=== PATIENT | male | born 1955 | race Asian ===

== ENCOUNTER 2025-03-21 17:37 | Inpatient (IN) | payer MEDICARE, OTHER ==
[~2025-03-21] VITALS: Ht 170.2 cm; Wt 66.2 kg
[2025-03-22 13:19] VITALS: BP 174/60; TEMP 97.5
[2025-03-22 14:12] VITALS: BP 174/60; TEMP 97.5
[2025-03-22 22:45] VITALS: BP 119/60; TEMP 98.2; O2SAT 98
[2025-03-22] MEDS ORDERED: MIRT7.5T10 PO (23:01)
[2025-03-22] MEDS ORDERED: LACT1CAP72 PO (23:01)
[2025-03-22] MEDS ORDERED: ATOR20TA PO (23:20)
[2025-03-22] MEDS ORDERED: TAMS-3 PO (23:20)
[2025-03-22] MEDS ORDERED: OLAN5TAB70 PO (23:20)
[2025-03-22] MEDS ORDERED: ONDA-104 PO (23:20)
[2025-03-22] MEDS ORDERED: ACET325T53 PO (23:20)
[2025-03-22] MEDS ORDERED: VITA1TAB37 PO (23:20)
[2025-03-22] MEDS ORDERED: CEFE1PIG3 IV (23:20)
[2025-03-22] MEDS ORDERED: COLL30OI TP (23:20)
[2025-03-22] MEDS ORDERED: SODI1TAB3 PO (23:20)
[2025-03-22] MEDS ORDERED: PROC5TAB56 PO (23:20)
[2025-03-22] MEDS ORDERED: ZINC1CAP2 PO (23:20)
[2025-03-23 05:00] VITALS: BP 101/62; TEMP 97.8; O2SAT 97
[2025-03-23] MEDS: VITAMIN B COMPLEX 1 TABLET PO SCH (06:30)
[2025-03-23 08:00] VITALS: BP 104/63; TEMP 97.4; O2SAT 97
[2025-03-23] MEDS: ACIDOPHILUS/BULGARICUS CHEW TAB PO SCH (08:56)
[2025-03-23] MEDS ORDERED: COLLAGENASE OINT 30 GM TUBE TP SCH (09:00)
[2025-03-23] MEDS ORDERED: VITAMIN B COMP W C PO SCH (09:00)
[2025-03-23] MEDS: ZINC SULFATE 220 MG CAPSULE PO SCH (09:08)
[2025-03-23] MEDS ORDERED: MEDIHONEY= THERAHONEY 1.5 OZ TUBE TOP SCH (10:30)
[2025-03-23] MEDS: CEFEPIME HCL 1 G in IV DEXTROSE 5% 50 ML IV SCH (10:50)
[2025-03-23 15:57] VITALS: BP 99/62; TEMP 98.5; O2SAT 98
[2025-03-23] MEDS: MEDIHONEY= THERAHONEY 1.5 OZ TUBE TOP SCH (17:40)
[2025-03-23] MEDS: OLANZAPINE 5 MG TABLET PO SCH (20:44)
[2025-03-23] MEDS: ATORVASTATIN 20 MG TABLET PO SCH (20:45)
[2025-03-23] MEDS: TAMSULOSIN HCL 0.4 MG CAP.SR.24H PO SCH (20:45)
[2025-03-23] MEDS: MIRTAZAPINE 15 MG TABLET PO SCH (20:45)
[2025-03-23] MEDS ORDERED: Medication Not On Formulary EA (Mirtazapine 7.5 MG) PO SCH (21:00)
[2025-03-23 21:17] VITALS: BP 116/69; TEMP 98.7; O2SAT 99
[2025-03-24 07:24] LABS: BASOPHILS # (AUTO) 0.1 K/UL (0.0-0.2); BASOPHILS % (AUTO) 0.7 % (0.0-2.0); EOSINOPHILS # (AUTO) 0.1 K/uL (0.0-0.7); EOSINOPHILS % (AUTO) 1.5 % (0.0-7.0); HEMATOCRIT 24.2 % (36.7-47.1); HEMOGLOBIN 8.1 g/dL (12.5-16.3); LYMPHOCYTES # (AUTO) 1.6 K/uL (0.8-4.8); LYMPHOCYTES % (AUTO) 19.4 % (20.5-51.5); MEAN CORPUSCULAR HEMOGLOBIN 30.8 uug (23.8-33.4); MEAN CORPUSCULAR HGB CONC 33 g/dL (32.5-36.3); MEAN CORPUSCULAR VOLUME 92.3 fL (73.0-96.2); MONOCYTES # (AUTO) 0.8 K/uL (0.1-1.30); MONOCYTES % (AUTO) 9.8 % (0.0-11.0); NEUTROPHILS # (AUTO) 5.5 K/uL (1.8-8.9); NEUTROPHILS % (AUTO) 68.6 % (38.5-71.5); PLATELET COUNT (AUTO) 364 K/uL (152-348); RED BLOOD CELL COUNT(AUTO) 2.62 MIL/uL (4.06-5.63); RED CELL DISTRIBUTION WIDTH 17.2 % (12.1-16.2)
[2025-03-24 07:28] LABS: DIFFERENTIAL COMMENT 1
[2025-03-24 07:38] VITALS: BP 112/65; TEMP 97.7; O2SAT 98
[2025-03-24 07:49] VITALS: BP 100/58; TEMP 97.2; O2SAT 98
[2025-03-24 07:49] LABS: CALCIUM 9.6 mg/dL (8.5-10.1); CREATININE 1.4 mg/dL (0.6-1.3); MAGNESIUM 2.2 mg/dL (1.8-2.4); PHOSPHOROUS 4.8 mg/dL (2.5-4.9)
[2025-03-24] MEDS: ZINC SULFATE 220 MG CAPSULE PO SCH (09:46)
[2025-03-24] MEDS: IV NORMAL SALINE 500 ML BAG IV ONE (10:55)
[2025-03-24 16:00] VITALS: BP 113/63; TEMP 97.6; O2SAT 98
[2025-03-24] MEDS: ARGININE/GLUTAMINE/CALCIUM BMB 1 EACH POWD.PACK PO SCH (17:00)
[2025-03-24] MEDS ORDERED: CEFEPIME HCL 1 G in IV DEXTROSE 5% 50 ML IV SCH (18:00)
[2025-03-24 20:16] VITALS: BP 111/63; TEMP 97.2; O2SAT 98
[2025-03-24] MEDS: REMEDY ESSENTIAL ZINC PASTE 113 GM TOP PRN (21:50)
[2025-03-25 05:30] VITALS: BP 108/65; TEMP 97.6; O2SAT 99
[2025-03-25 08:00] VITALS: BP 104/65; TEMP 97.7; O2SAT 99
[2025-03-25 08:08] LABS: CALCIUM 9.7 mg/dL (8.5-10.1); CREATININE 1.4 mg/dL (0.6-1.3); POTASSIUM 4.8 mmol/L (3.5-5.1)
[2025-03-25 16:20] VITALS: BP 123/69; TEMP 97.7; O2SAT 100
[2025-03-25 20:00] VITALS: BP 114/65; TEMP 97.7; O2SAT 99
[2025-03-26 05:00] VITALS: BP 100/58; TEMP 97.9; O2SAT 98
[2025-03-26 08:07] VITALS: BP 103/60; TEMP 97.4; O2SAT 98
[2025-03-26 16:01] VITALS: BP 145/70; TEMP 97; O2SAT 95
[2025-03-26 19:35] VITALS: BP 116/48; TEMP 97.8; O2SAT 98
[2025-03-27 05:30] VITALS: BP 114/69; TEMP 97.9; O2SAT 100
[2025-03-27 07:51] VITALS: BP 105/60; TEMP 97.7; O2SAT 98
[2025-03-27 15:56] VITALS: BP 114/66; TEMP 97.6; O2SAT 98
[2025-03-27 20:20] VITALS: BP 109/56; TEMP 98.4; O2SAT 98
[2025-03-28 06:42] VITALS: BP 110/63; TEMP 97.7; O2SAT 99
[2025-03-28 08:00] VITALS: BP 98/57; TEMP 97.3; O2SAT 99
[2025-03-28] MEDS: MEGESTROL ACETATE 400 MG/10 ML LIQUID UDC PO SCH (13:47)
[2025-03-28 17:03] VITALS: BP 104/60; TEMP 98.1; O2SAT 100
[2025-03-28 19:51] VITALS: BP 104/60; TEMP 97.8; O2SAT 98
[2025-03-29 05:43] VITALS: BP 114/60; TEMP 97.6; O2SAT 99
[2025-03-29 09:17] VITALS: BP 113/63; TEMP 97.6; O2SAT 100
[2025-03-29] MEDS ORDERED: LOPERAMIDE HCL 2 MG CAPSULE PO ONE (10:00)
[2025-03-29] MEDS: LOPERAMIDE HCL 2 MG CAPSULE PO PRN (10:26)
[2025-03-29 10:27] LABS: BASOPHILS % (AUTO) 0.2 % (0.0-2.0); EOSINOPHILS # (AUTO) 0.1 K/uL (0.0-0.7); EOSINOPHILS % (AUTO) 0.6 % (0.0-7.0); HEMATOCRIT 28.6 % (36.7-47.1); HEMOGLOBIN 9.3 g/dL (12.5-16.3); LYMPHOCYTES # (AUTO) 1.6 K/uL (0.8-4.8); LYMPHOCYTES % (AUTO) 13.5 % (20.5-51.5); MEAN CORPUSCULAR HEMOGLOBIN 30.6 uug (23.8-33.4); MEAN CORPUSCULAR HGB CONC 32 g/dL (32.5-36.3); MEAN CORPUSCULAR VOLUME 94.2 fL (73.0-96.2); MONOCYTES # (AUTO) 0.6 K/uL (0.1-1.30); MONOCYTES % (AUTO) 5.2 % (0.0-11.0); NEUTROPHILS # (AUTO) 9.8 K/uL (1.8-8.9); NEUTROPHILS % (AUTO) 80.5 % (38.5-71.5); PLATELET COUNT (AUTO) 456 K/uL (152-348); RED BLOOD CELL COUNT(AUTO) 3.03 MIL/uL (4.06-5.63); RED CELL DISTRIBUTION WIDTH 16.9 % (12.1-16.2); WHITE BLOOD COUNT (AUTO) 12.2 K/uL (3.6-10.2)
[2025-03-29 10:48] LABS: CALCIUM 10.4 mg/dL (8.5-10.1); CREATININE 1.5 mg/dL (0.6-1.3); POTASSIUM 4.7 mmol/L (3.5-5.1)
[2025-03-29 11:52] LABS: DIFFERENTIAL COMMENT 1
[2025-03-29 16:29] VITALS: BP 116/64; TEMP 97.9; O2SAT 100
[2025-03-29 20:30] VITALS: BP 101/54; TEMP 98; O2SAT 100
[2025-03-30 05:53] VITALS: BP 110/63; TEMP 98.6; O2SAT 100
[2025-03-30 07:58] LABS: BASOPHILS % (AUTO) 0.2 % (0.0-2.0); EOSINOPHILS # (AUTO) 0.1 K/uL (0.0-0.7); EOSINOPHILS % (AUTO) 0.4 % (0.0-7.0); HEMATOCRIT 23.2 % (36.7-47.1); HEMOGLOBIN 7.8 g/dL (12.5-16.3); LYMPHOCYTES # (AUTO) 1.7 K/uL (0.8-4.8); LYMPHOCYTES % (AUTO) 11.8 % (20.5-51.5); MEAN CORPUSCULAR HEMOGLOBIN 30.7 uug (23.8-33.4); MEAN CORPUSCULAR HGB CONC 34 g/dL (32.5-36.3); MEAN CORPUSCULAR VOLUME 91.7 fL (73.0-96.2); MONOCYTES % (AUTO) 7.4 % (0.0-11.0); NEUTROPHILS # (AUTO) 11.3 K/uL (1.8-8.9); NEUTROPHILS % (AUTO) 80.2 % (38.5-71.5); PLATELET COUNT (AUTO) 394 K/uL (152-348); RED BLOOD CELL COUNT(AUTO) 2.53 MIL/uL (4.06-5.63); WHITE BLOOD COUNT (AUTO) 14.1 K/uL (3.6-10.2)
[2025-03-30 07:59] LABS: DIFFERENTIAL COMMENT 1
[2025-03-30 08:00] VITALS: BP 99/55; TEMP 97.7; O2SAT 100
[2025-03-30 16:03] VITALS: BP 104/53; TEMP 98.6; O2SAT 100
[2025-03-30 19:49] VITALS: BP 110/59; TEMP 98.8; O2SAT 100
[2025-03-30 22:38] LABS: *BILIRUBIN,URIN NEGATIVE (NEGATIVE); *BLOOD, URINE 2+ (NEGATIVE); *CLARITY,URINE CLOUDY (CLEAR); *COLOR,URINE YELLOW (YELLOW); *KETONES,URINE NEGATIVE (NEGATIVE); *PROTEIN,URINE 2+ (NEGATIVE); *UROBILINOGEN,URINE 0.2 E.U./dl (NORMAL); LEUKOCYTE ESTERASE ,URINE 3+ (NEGATIVE); NITRITE, URINE NEGATIVE (NEGATIVE); UGLUCOSE NEGATIVE (NEGATIVE)
[2025-03-30 22:51] LABS: WBC,URINE 50-80 /HPF (0-3)
[2025-03-30 22:52] LABS: BACTERIA,URINE MODERATE /HPF (NONE SEEN); SQUAMOUS EPITHELIAL CELL,UR FEW /HPF (NONE SEEN)
[2025-03-30 22:55] LABS: YEAST,URINE BUDDING YEAST /HPF (NONE SEEN)
[2025-03-31 06:03] LABS: EOSINOPHILS % (AUTO) 0.4 % (0.0-7.0); HEMATOCRIT 21.5 % (36.7-47.1)
[2025-03-31 06:05] LABS: BASOPHILS % (AUTO) 0.3 % (0.0-2.0); LYMPHOCYTES # (AUTO) 1.7 K/uL (0.8-4.8); LYMPHOCYTES % (AUTO) 14.3 % (20.5-51.5); MEAN CORPUSCULAR HEMOGLOBIN 30.7 uug (23.8-33.4); MEAN CORPUSCULAR HGB CONC 34 g/dL (32.5-36.3); MEAN CORPUSCULAR VOLUME 89.6 fL (73.0-96.2); MONOCYTES # (AUTO) 0.9 K/uL (0.1-1.30); MONOCYTES % (AUTO) 7.5 % (0.0-11.0); NEUTROPHILS # (AUTO) 9.4 K/uL (1.8-8.9); NEUTROPHILS % (AUTO) 77.5 % (38.5-71.5); PLATELET COUNT (AUTO) 433 K/uL (152-348); RED CELL DISTRIBUTION WIDTH 16.4 % (12.1-16.2); WHITE BLOOD COUNT (AUTO) 12.1 K/uL (3.6-10.2)
[2025-03-31 06:06] LABS: DIFFERENTIAL COMMENT 1; HEMOGLOBIN 7.3 g/dL (12.5-16.3)
[2025-03-31 06:09] LABS: ALBUMIN 1.6 g/dL (3.4-5.0); BILIRUBIN,TOTAL 0.2 mg/dL (0.2-1.0); CALCIUM 9.5 mg/dL (8.5-10.1); CREATININE 1.4 mg/dL (0.6-1.3); PHOSPHOROUS 4.9 mg/dL (2.5-4.9); POTASSIUM 5.2 mmol/L (3.5-5.1); TOTAL PROTEIN, SERUM 9.3 g/dL (6.4-8.2)
[2025-03-31 07:17] VITALS: BP 100/54; TEMP 97.8; O2SAT 99
[2025-03-31 08:00] VITALS: BP 98/58; TEMP 97.7; O2SAT 98
[2025-03-31 16:05] VITALS: BP 116/66; TEMP 97.6; O2SAT 100
[2025-03-31 19:37] VITALS: BP 105/65; TEMP 98.1; O2SAT 99
[2025-03-31 21:47] LABS: *OCCULT BLOOD STOOL POSITIVE (NEGATIVE)
[2025-03-31] MEDS: CEphaleXIN 500 MG CAPSULE PO SCH (21:52)
[2025-04-01] MEDS: PANTOPRAZOLE SODIUM 40 MG TABLET.DR PO SCH (06:03)
[2025-04-01 06:52] VITALS: BP 136/73; TEMP 98.2; O2SAT 95
[2025-04-01 07:13] LABS: BASOPHILS % (AUTO) 0.2 % (0.0-2.0); EOSINOPHILS % (AUTO) 0.2 % (0.0-7.0); HEMATOCRIT 23.6 % (36.7-47.1); HEMOGLOBIN 7.9 g/dL (12.5-16.3); LYMPHOCYTES # (AUTO) 1.8 K/uL (0.8-4.8); LYMPHOCYTES % (AUTO) 13.8 % (20.5-51.5); MEAN CORPUSCULAR HGB CONC 34 g/dL (32.5-36.3); MEAN CORPUSCULAR VOLUME 92.5 fL (73.0-96.2); MONOCYTES # (AUTO) 0.9 K/uL (0.1-1.30); MONOCYTES % (AUTO) 6.8 % (0.0-11.0); NEUTROPHILS # (AUTO) 10.1 K/uL (1.8-8.9); PLATELET COUNT (AUTO) 437 K/uL (152-348); RED BLOOD CELL COUNT(AUTO) 2.55 MIL/uL (4.06-5.63); WHITE BLOOD COUNT (AUTO) 12.7 K/uL (3.6-10.2)
[2025-04-01 07:14] LABS: DIFFERENTIAL COMMENT 1
[2025-04-01 07:38] LABS: ALBUMIN 1.7 g/dL (3.4-5.0); BILIRUBIN,TOTAL 0.2 mg/dL (0.2-1.0); CALCIUM 9.5 mg/dL (8.5-10.1); CREATININE 1.1 mg/dL (0.6-1.3); MAGNESIUM 2.2 mg/dL (1.8-2.4); PHOSPHOROUS 5.1 mg/dL (2.5-4.9); TOTAL PROTEIN, SERUM 9.4 g/dL (6.4-8.2)
[2025-04-01 07:48] VITALS: BP 132/60; TEMP 98.8; O2SAT 99
[2025-04-01] MEDS: FLUCONAZOLE 100 MG TABLET PO SCH (08:40)
[2025-04-01 16:07] VITALS: BP 110/57; TEMP 97.6; O2SAT 100
[2025-04-02 06:16] VITALS: BP 111/62; TEMP 98.4; O2SAT 100
[2025-04-02 08:00] VITALS: BP 111/62; TEMP 97.2; O2SAT 100
[2025-04-02] MEDS: levoFLOXacin 500 MG TABLET PO SCH (11:09)
[2025-04-02 16:00] VITALS: BP 136/22; TEMP 97.6; O2SAT 97
[2025-04-02 19:48] VITALS: BP 115/63; TEMP 97.4; O2SAT 99
[2025-04-03 05:16] VITALS: BP 106/68; TEMP 97.5; O2SAT 99
[2025-04-03] MEDS: ONDANSETRON HCL 4 MG TABLET PO PRN (08:16)
[2025-04-03] MEDS: ACETAMINOPHEN 325 MG TABLET PO PRN (09:57)
[2025-04-03] MEDS: DICYCLOMINE HCL 20 MG/2 ML AMPUL IM ONE (11:45)
[2025-04-03 20:00] VITALS: BP 112/67; TEMP 98.3; O2SAT 97
[2025-04-04 05:00] VITALS: BP 117/17; TEMP 97.3; O2SAT 99
[2025-04-04 08:00] VITALS: BP 120/77; TEMP 97.7; O2SAT 100
[2025-04-04 08:06] LABS: BASOPHILS % (AUTO) 0.2 % (0.0-2.0); EOSINOPHILS % (AUTO) 0.1 % (0.0-7.0); HEMATOCRIT 26.9 % (36.7-47.1); LYMPHOCYTES # (AUTO) 1.7 K/uL (0.8-4.8); LYMPHOCYTES % (AUTO) 11.1 % (20.5-51.5); MEAN CORPUSCULAR HEMOGLOBIN 31.2 uug (23.8-33.4); MEAN CORPUSCULAR HGB CONC 34 g/dL (32.5-36.3); MONOCYTES # (AUTO) 0.8 K/uL (0.1-1.30); MONOCYTES % (AUTO) 5.5 % (0.0-11.0); NEUTROPHILS # (AUTO) 12.5 K/uL (1.8-8.9); NEUTROPHILS % (AUTO) 83.1 % (38.5-71.5); PLATELET COUNT (AUTO) 606 K/uL (152-348); RED CELL DISTRIBUTION WIDTH 16.4 % (12.1-16.2); WHITE BLOOD COUNT (AUTO) 15.1 K/uL (3.6-10.2)
[2025-04-04 08:09] LABS: DIFFERENTIAL COMMENT 1
[2025-04-04 08:26] LABS: ALBUMIN 1.8 g/dL (3.4-5.0); BILIRUBIN,TOTAL 0.3 mg/dL (0.2-1.0); CALCIUM 10.1 mg/dL (8.5-10.1); CREATININE 1.9 mg/dL (0.6-1.3); MAGNESIUM 2.5 mg/dL (1.8-2.4); PHOSPHOROUS 6.8 mg/dL (2.5-4.9); POTASSIUM 5.6 mmol/L (3.5-5.1); TOTAL PROTEIN, SERUM 10.5 g/dL (6.4-8.2)
[2025-04-04] MEDS: DICYCLOMINE HCL 20 MG/2 ML AMPUL IM PRN (12:18)
[2025-04-04] MEDS: IV NS 1000 ML 1,000 ML IV ONE (12:40)
[2025-04-04 15:20] LABS: *BILIRUBIN,URIN NEGATIVE (NEGATIVE); *BLOOD, URINE 3+ (NEGATIVE); *CLARITY,URINE SLIGHTLY CLOUDY (CLEAR); *COLOR,URINE YELLOW (YELLOW); *KETONES,URINE NEGATIVE (NEGATIVE); *PROTEIN,URINE 2+ (NEGATIVE); *UROBILINOGEN,URINE 0.2 E.U./dl (NORMAL); LEUKOCYTE ESTERASE ,URINE 3+ (NEGATIVE); NITRITE, URINE NEGATIVE (NEGATIVE); UGLUCOSE NEGATIVE (NEGATIVE)
[2025-04-04 15:30] LABS: *CREATININE,URINE 82.9 mg/dL (30-125); *URINE TOTAL PROTEIN RANDOM 170.5 mg/dL (<150/24HR)
[2025-04-04 15:41] LABS: BACTERIA,URINE MODERATE /HPF (NONE SEEN); WBC,URINE 20-50 /HPF (0-3)
[2025-04-04 15:42] LABS: SQUAMOUS EPITHELIAL CELL,UR FEW /HPF (NONE SEEN)
[2025-04-04 16:00] VITALS: BP 122/77; TEMP 97.5; O2SAT 100
[2025-04-04] MEDS: IV NS 1000 ML 1,000 ML IV SCH (18:27)
[2025-04-04 18:44] LABS: CALCIUM 9.4 mg/dL (8.5-10.1); CREATININE 1.7 mg/dL (0.6-1.3); POTASSIUM 5.7 mmol/L (3.5-5.1)
[2025-04-04] MEDS ORDERED: FUROSEMIDE 40 MG/4 ML VIAL IV ONE (19:15)
[2025-04-04] MEDS ORDERED: IV NORMAL SALINE 1000 ML BAG IV ONE (19:15)
[2025-04-05] MEDS ORDERED: DICY10AM2 IM (09:31)
[2025-04-05] MEDS ORDERED: HONE44PA TP (09:32)
[2025-04-05] MEDS ORDERED: PANT40TA49 PO (09:33)
[2025-04-05] MEDS ORDERED: PETR113P TP (09:34)
[2025-04-05] MEDS ORDERED: LOPE2TAB25 PO (09:39)
[2025-04-06 07:23] LABS: BASOPHILS % (AUTO) 0.1 % (0.0-2.0); HEMATOCRIT 25.1 % (36.7-47.1); HEMOGLOBIN 8.3 g/dL (12.5-16.3); LYMPHOCYTES # (AUTO) 1.1 K/uL (0.8-4.8); MEAN CORPUSCULAR HEMOGLOBIN 30.3 uug (23.8-33.4); MEAN CORPUSCULAR HGB CONC 33 g/dL (32.5-36.3); MEAN CORPUSCULAR VOLUME 91.5 fL (73.0-96.2); MONOCYTES # (AUTO) 0.7 K/uL (0.1-1.30); MONOCYTES % (AUTO) 4.9 % (0.0-11.0); NEUTROPHILS # (AUTO) 11.5 K/uL (1.8-8.9); PLATELET COUNT (AUTO) 560 K/uL (152-348); RED BLOOD CELL COUNT(AUTO) 2.74 MIL/uL (4.06-5.63); RED CELL DISTRIBUTION WIDTH 16.6 % (12.1-16.2); WHITE BLOOD COUNT (AUTO) 13.2 K/uL (3.6-10.2)
[2025-04-06 07:37] LABS: DIFFERENTIAL COMMENT 1
[2025-04-07 16:50] LABS: PROSTATE SPECIFIC ANTIGEN 1.92 ng/mL (0.00-4.00)
== END 2025-04-04 20:41 | disposition short-term general hospital (02) | DRG 853 ==
LOC: EDBD
PROVIDERS: ADMIT Physical Medicine & Rehabilitation Pain Medicine; ATTEND Physical Medicine & Rehabilitation Pain Medicine
PROC: 0JB70ZZ Excision of Back Subcutaneous Tissue and Fascia, Open Approach (ICD-10-PCS; principal; 2025-03-24)
PROC: 0JB70ZZ Excision of Back Subcutaneous Tissue and Fascia, Open Approach (ICD-10-PCS; 2025-04-01)
PROC: 05HB33Z Insertion of Infusion Device into Right Basilic Vein, Percutaneous Approach (ICD-10-PCS; 2025-04-04)
DX: A41.51 Sepsis due to Escherichia coli [E. coli] (principal); E43 Unspecified severe protein-calorie malnutrition; J69.0 Pneumonitis due to inhalation of food and vomit; L89.153 Pressure ulcer of sacral region, stage 3; G92.8 Other toxic encephalopathy; N17.0 Acute kidney failure with tubular necrosis; B49 Unspecified mycosis; D68.59 Other primary thrombophilia; E87.1 Hypo-osmolality and hyponatremia; B96.20 Unspecified Escherichia coli [E. coli] as the cause of diseases classified elsewhere; N30.90 Cystitis, unspecified without hematuria; B96.5 Pseudomonas (aeruginosa) (mallei) (pseudomallei) as the cause of diseases classified elsewhere; D64.9 Anemia, unspecified; Z85.048 Personal history of other malignant neoplasm of rectum, rectosigmoid junction, and anus; N40.0 Benign prostatic hyperplasia without lower urinary tract symptoms; E78.5 Hyperlipidemia, unspecified; Z93.3 Colostomy status; E88.09 Other disorders of plasma-protein metabolism, not elsewhere classified; I12.9 Hypertensive chronic kidney disease with stage 1 through stage 4 chronic kidney disease, or unspecified chronic kidney disease; N18.9 Chronic kidney disease, unspecified; Z92.3 Personal history of irradiation; Z87.891 Personal history of nicotine dependence; Z87.440 Personal history of urinary (tract) infections; E87.5 Hyperkalemia; N13.9 Obstructive and reflux uropathy, unspecified; R19.5 Other fecal abnormalities
CPT/HCPCS: 36415; 74018; 76775; 82378; 83605; 83690; 83735; 84100; 84153; 84300; 85025; 87077; 87086; A4663; J0500; J0692; J7040; J8999; Q0162

== ENCOUNTER 2025-04-04 20:51 | Inpatient (IN) | payer MEDICARE, OTHER ==
[~2025-04-04] VITALS: Ht 170.2 cm; Wt 65.8 kg
[~2025-04-04 20:51] MED LIST: ACET325T53 PO; ATOR20TA PO; CEFE1PIG3 IV; COLL30OI TP; LACT1CAP72 PO; MIRT7.5T10 PO; OLAN5TAB70 PO; ONDA-104 PO; PROC5TAB56 PO; SODI1TAB3 PO; TAMS-3 PO; VITA1TAB37 PO; ZINC1CAP2 PO
[2025-04-04] MEDS ORDERED: ACETAMINOPHEN 325 MG TABLET-SA PATIENTS-PAIN ONLY PO PRN (21:15)
[2025-04-04] MEDS ORDERED: IV NS 1000 ML 1,000 ML IV PRN (21:30)
[2025-04-04 21:33] VITALS: BP 125/76; TEMP 98.2; O2SAT 96
[2025-04-04] MEDS ORDERED: CEFEPIME HCL 1 G in IV DEXTROSE 5% 50 ML IV SCH (22:00)
[2025-04-04] MEDS ORDERED: IV NS 1000 ML 1,000 ML IV ONE (22:00)
[2025-04-04] MEDS: IV NORMAL SALINE 1000 ML BAG IV ONE (22:14)
[2025-04-04] MEDS: FUROSEMIDE 40 MG/4 ML VIAL IV ONE (22:33)
[2025-04-04] MEDS ORDERED: FLUCONAZOLE 200 MG/100 ML PIGGYBACK ONE (22:34)
[2025-04-04] MEDS ORDERED: CEFEPIME HCL 1 G VIAL ONE (22:34)
[2025-04-04] MEDS: IV NS 1000 ML 1,000 ML IV PRN (22:54)
[2025-04-04] MEDS: FLUCONAZOLE 200 MG/NS 100ML IV 100 MG in PREMIXED 1 EACH IV SCH (22:56)
[2025-04-05] MEDS: CEFEPIME HCL 1 G in IV DEXTROSE 5% 50 ML IV ONE (00:02)
[2025-04-05 00:12] VITALS: BP 112/69; TEMP 87.5; TEMP 97.5; O2SAT 97
[2025-04-05 04:30] VITALS: BP 104/70; TEMP 97.7; O2SAT 97
[2025-04-05 07:26] LABS: ASPARTATE AMINOTRANSFERASE 27.0 U/L (15-37); CREATININE 1.6 mg/dL (0.6-1.3); SODIUM SERUM 134.0 mmol/L (136-145); TOTAL PROTEIN, SERUM 8.8 g/dL (6.4-8.2); UREA NITROGEN, BLOOD 46.0 mg/dL (7-18)
[2025-04-05 07:29] LABS: PLATELET COUNT (AUTO) 604 K/uL (152-348); RED BLOOD CELL COUNT(AUTO) 2.64 MIL/uL (4.06-5.63); RED CELL DISTRIBUTION WIDTH 16.6 % (12.1-16.2); WHITE BLOOD COUNT (AUTO) 16.2 K/uL (3.6-10.2)
[2025-04-05 07:30] LABS: IRON, SERUM 37.0 ug/dL (50-175)
[2025-04-05 07:40] VITALS: BP 126/75; TEMP 97.9; O2SAT 97
[2025-04-05] MEDS ORDERED: COLLAGENASE OINT 30 GM TUBE TP SCH ×2 (09:00→17:00)
[2025-04-05] MEDS: CEFEPIME HCL 1 G in IV DEXTROSE 5% 50 ML IV SCH (09:14)
[2025-04-05] MEDS: CULTURELLE CAPSULE PO SCH (09:14)
[2025-04-05] MEDS: ZINC SULFATE 220 MG CAPSULE PO SCH (09:14)
[2025-04-05] MEDS: SODIUM CHLORIDE 1,000 MG TABLET PO SCH ×2 (09:14→17:04)
[2025-04-05] MEDS: VITAMIN B COMPLEX 1 TABLET PO SCH (09:28)
[2025-04-05] MEDS ORDERED: DICY10AM2 IM (09:31)
[2025-04-05] MEDS ORDERED: HONE44PA TP (09:32)
[2025-04-05] MEDS ORDERED: PANT40TA49 PO (09:33)
[2025-04-05] MEDS ORDERED: PETR113P TP (09:34)
[2025-04-05] MEDS ORDERED: LOPE2TAB25 PO (09:39)
[2025-04-05] MEDS ORDERED: SODIUM CHLORIDE 1,000 MG TABLET PO SCH (11:12)
[2025-04-05 11:31] VITALS: BP 110/73; TEMP 98; O2SAT 98
[2025-04-05] MEDS ORDERED: DICYCLOMINE HCL 20 MG/2 ML AMPUL IM PRN (12:15)
[2025-04-05] MEDS: IV D5/ 0.9% NACL 1,000 ML IV PRN (12:39)
[2025-04-05] MEDS: MEDIHONEY= THERAHONEY 1.5 OZ TUBE TOP SCH (13:04)
[2025-04-05 15:52] VITALS: BP 134/79; TEMP 98; O2SAT 99
[2025-04-05 19:00] VITALS: BP 145/86; TEMP 97.9; O2SAT 98
[2025-04-05 19:19] LABS: *OCCULT BLOOD STOOL NEGATIVE (NEGATIVE)
[2025-04-05] MEDS: ATORVASTATIN 20 MG TABLET PO SCH (20:32)
[2025-04-05] MEDS: TAMSULOSIN HCL 0.4 MG CAP.SR.24H PO SCH (20:32)
[2025-04-05] MEDS: OLANZAPINE 5 MG TABLET PO SCH (20:32)
[2025-04-05] MEDS: MIRTAZAPINE 15 MG TABLET PO SCH (20:32)
[2025-04-06] VITALS: BP 137/80; TEMP 97.7; O2SAT 97
[2025-04-06 04:00] VITALS: BP 134/81; TEMP 98.3; O2SAT 98
[2025-04-06 07:30] VITALS: BP 122/74; TEMP 97.6; O2SAT 99
[2025-04-06 07:49] LABS: ASPARTATE AMINOTRANSFERASE 22.0 U/L (15-37); CREATININE 1.4 mg/dL (0.6-1.3); SODIUM SERUM 133.0 mmol/L (136-145); TOTAL PROTEIN, SERUM 9.7 g/dL (6.4-8.2); UREA NITROGEN, BLOOD 39.0 mg/dL (7-18)
[2025-04-06] MEDS: PANTOPRAZOLE SODIUM 40 MG VIAL IV SCH (08:47)
[2025-04-06] MEDS ORDERED: PANTOPRAZOLE SODIUM 40 MG TABLET.DR PO SCH (09:00)
[2025-04-06 11:31] VITALS: BP 141/83; TEMP 97.4; O2SAT 100
[2025-04-06 15:48] VITALS: BP 135/77; TEMP 97.6; O2SAT 99
[2025-04-06 16:41] LABS: *BILIRUBIN,URIN NEGATIVE (NEGATIVE); *BLOOD, URINE 2+ (NEGATIVE); *CLARITY,URINE CLEAR (CLEAR); *COLOR,URINE YELLOW (YELLOW); *KETONES,URINE NEGATIVE (NEGATIVE); *PROTEIN,URINE 2+ (NEGATIVE); *UROBILINOGEN,URINE 0.2 E.U./dl (NORMAL); LEUKOCYTE ESTERASE ,URINE 1+ (NEGATIVE); NITRITE, URINE NEGATIVE (NEGATIVE); UGLUCOSE NEGATIVE (NEGATIVE)
[2025-04-06] MEDS ORDERED: DIATR MEGLU/DIATRIZOATE SODIUM 30 ML BOTTLE ONE (16:46)
[2025-04-06 20:41] VITALS: BP 131/80; TEMP 97.5; O2SAT 97
[2025-04-07 00:15] VITALS: BP 131/80; TEMP 98.3; O2SAT 98
[2025-04-07 05:52] VITALS: BP 114/82; TEMP 97.3; O2SAT 98
[2025-04-07 07:03] LABS: PLATELET COUNT (AUTO) 574 K/uL (152-348); RED BLOOD CELL COUNT(AUTO) 2.77 MIL/uL (4.06-5.63); RED CELL DISTRIBUTION WIDTH 16.6 % (12.1-16.2); WHITE BLOOD COUNT (AUTO) 11.1 K/uL (3.6-10.2)
[2025-04-07 07:20] LABS: SODIUM SERUM 140.0 mmol/L (136-145)
[2025-04-07 07:21] LABS: ASPARTATE AMINOTRANSFERASE 19.0 U/L (15-37); CREATININE 1.2 mg/dL (0.6-1.3); TOTAL PROTEIN, SERUM 10.1 g/dL (6.4-8.2); UREA NITROGEN, BLOOD 31.0 mg/dL (7-18)
[2025-04-07 07:30] VITALS: BP 126/83; TEMP 97.9; O2SAT 98
[2025-04-07] MEDS ORDERED: POTASSIUM CHLORIDE 50 ML IV SCH (09:45)
[2025-04-07] MEDS: POTASSIUM CHLORIDE 50 ML IV SCH (10:36)
[2025-04-07] MEDS ORDERED: POTASSIUM CHLORIDE 20 MEQ TAB.PRT.SR PO ONE (11:00)
[2025-04-07 11:30] VITALS: BP 141/84; TEMP 98.1; O2SAT 99
[2025-04-07 15:47] VITALS: BP 139/89; TEMP 97.6; O2SAT 99
[2025-04-07 19:10] VITALS: BP 137/84; TEMP 98; O2SAT 97
[2025-04-08 04:00] VITALS: BP 146/89; TEMP 98.3; O2SAT 99
[2025-04-08 07:29] LABS: ASPARTATE AMINOTRANSFERASE 18.0 U/L (15-37); CREATININE 1.1 mg/dL (0.6-1.3); SODIUM SERUM 142.0 mmol/L (136-145); TOTAL PROTEIN, SERUM 8.7 g/dL (6.4-8.2); UREA NITROGEN, BLOOD 30.0 mg/dL (7-18)
[2025-04-08 07:58] VITALS: BP 124/78; TEMP 97.8; O2SAT 98
[2025-04-08 10:59] LABS: PLATELET COUNT (AUTO) 571 K/uL (152-348); RED BLOOD CELL COUNT(AUTO) 2.66 MIL/uL (4.06-5.63); RED CELL DISTRIBUTION WIDTH 16.9 % (12.1-16.2); WHITE BLOOD COUNT (AUTO) 11.4 K/uL (3.6-10.2)
[2025-04-08 11:23] VITALS: BP 124/77; TEMP 98.6; O2SAT 99
[2025-04-08] MEDS ORDERED: TPN/PPN PER PHARMACY IV PRN (11:30)
[2025-04-08] MEDS ORDERED: ACETAMINOPHEN 325 MG TABLET PO PRN (11:45)
[2025-04-08] MEDS ORDERED: INSULIN REGULAR, HUMAN 1000 UNIT/10 ML VIAL SQ PRN (12:00)
[2025-04-08] MEDS ORDERED: DEXTROSE 50% 50 ML DISP.SYRIN IV PRN (12:00)
[2025-04-08] MEDS: POTASSIUM CHLORIDE 50 ML IV SCH (12:34)
[2025-04-08] MEDS: TPN BAG #1 IV SCH (15:06)
[2025-04-08 16:09] VITALS: BP 146/84; TEMP 97.8; O2SAT 100
[2025-04-08] MEDS: BLOOD SUGAR DIAGNOSTIC 1 EACH STRIP VI SCH (17:45)
[2025-04-08 19:48] VITALS: BP 132/80; TEMP 97.9; O2SAT 98
[2025-04-08] MEDS: IV D5/ 0.9% NACL 1,000 ML IV PRN (19:50)
[2025-04-09] MEDS: OLANZAPINE 10 MG VIAL IM ONE (00:13)
[2025-04-09 04:40] VITALS: BP 112/76; TEMP 97.9; O2SAT 95
[2025-04-09] MEDS ORDERED: IV D5/ 0.9% NACL 1,000 ML IV PRN (06:00)
[2025-04-09 06:43] LABS: PLATELET COUNT (AUTO) 558 K/uL (152-348); RED BLOOD CELL COUNT(AUTO) 2.66 MIL/uL (4.06-5.63); RED CELL DISTRIBUTION WIDTH 16.7 % (12.1-16.2); WHITE BLOOD COUNT (AUTO) 11.0 K/uL (3.6-10.2)
[2025-04-09 07:02] LABS: ASPARTATE AMINOTRANSFERASE 13.0 U/L (15-37); CREATININE 0.8 mg/dL (0.6-1.3); SODIUM SERUM 143.0 mmol/L (136-145); TOTAL PROTEIN, SERUM 8.4 g/dL (6.4-8.2); UREA NITROGEN, BLOOD 28.0 mg/dL (7-18)
[2025-04-09] MEDS: CEFEPIME HCL 1 G in IV DEXTROSE 5% 50 ML IV SCH (08:20)
[2025-04-09] MEDS: IV FAT EMULSIONS 20% 250 ML IV ONE (10:06)
[2025-04-09 11:17] VITALS: BP 129/80; TEMP 97.3; O2SAT 98
[2025-04-09] MEDS: TPN BAG #2 IV SCH (14:26)
[2025-04-09 15:36] VITALS: BP 121/79; TEMP 97.6; O2SAT 96
[2025-04-09] MEDS ORDERED: FAT250EM13 IV (16:38)
[2025-04-09] MEDS ORDERED: SODI20VI3 IV (16:38)
[2025-04-09] MEDS ORDERED: CEFE1FRO IV (16:38)
[2025-04-09] MEDS ORDERED: PANT40VI IV (16:38)
[2025-04-09] MEDS ORDERED: INSU100V28 SQ (16:38)
[2025-04-09 19:00] VITALS: BP 126/75; TEMP 97.8; O2SAT 99
[2025-04-10 04:00] VITALS: BP 116/71; TEMP 98.1; O2SAT 96
[2025-04-10 07:19] LABS: PLATELET COUNT (AUTO) 492 K/uL (152-348); RED BLOOD CELL COUNT(AUTO) 2.51 MIL/uL (4.06-5.63); RED CELL DISTRIBUTION WIDTH 17.2 % (12.1-16.2); WHITE BLOOD COUNT (AUTO) 9.5 K/uL (3.6-10.2)
[2025-04-10 07:30] LABS: ASPARTATE AMINOTRANSFERASE 18 U/L (15-37); CREATININE 0.8 mg/dL (0.6-1.3); SODIUM SERUM 143 mmol/L (136-145); TOTAL PROTEIN, SERUM 8.3 g/dL (6.4-8.2); UREA NITROGEN, BLOOD 29 mg/dL (7-18)
[2025-04-10] MEDS: TPN BAG #3 IV SCH (09:00)
[2025-04-10] MEDS: MAGNESIUM SULFATE/D5W 100 ML IV SCH (09:29)
[2025-04-10 10:07] LABS: CARCINOEMBRYONIC AG (CEA) 7.6 ng/mL (0.0-4.7); FOLATE (FOLIC ACID), SERUM 5.6 ng/mL (>3.0)
[2025-04-10 10:33] VITALS: BP 111/61; TEMP 97.5; O2SAT 98
[2025-04-10] MEDS: POTASSIUM PHOSPHATE MM 15 MMOL in IV NORMAL SALINE 250 ML IV ONE (10:55)
[2025-04-10 15:20] VITALS: BP 134/76; TEMP 98; O2SAT 100
[2025-04-13 04:07] LABS: A/G RATIO 0.4 (0.7-1.7); BETA GLOBULIN 1.0 g/dL (0.7-1.3); GLOBULIN, TOTAL 5.7 g/dL (2.2-3.9); M-SPIKE Not Observed g/dL (Not Observed); PROTEIN, TOTAL 7.9 g/dL (6.0-8.5)
== END 2025-04-10 15:32 | disposition short-term general hospital (02) | DRG 871 ==
LOC: TELE3 20:51 → MEDSURG3 04-08 08:10
PROVIDERS: ADMIT Internal Medicine; ATTEND Internal Medicine
PROC: 0D9670Z Drainage of Stomach with Drainage Device, Via Natural or Artificial Opening (ICD-10-PCS; principal; 2025-04-06)
DX: A41.9 Sepsis, unspecified organism (principal); E43 Unspecified severe protein-calorie malnutrition; G92.8 Other toxic encephalopathy; L89.153 Pressure ulcer of sacral region, stage 3; N17.0 Acute kidney failure with tubular necrosis; J69.0 Pneumonitis due to inhalation of food and vomit; B37.49 Other urogenital candidiasis; E87.1 Hypo-osmolality and hyponatremia; N13.6 Pyonephrosis; K56.600 Partial intestinal obstruction, unspecified as to cause; K56.7 Ileus, unspecified; C19 Malignant neoplasm of rectosigmoid junction; C79.11 Secondary malignant neoplasm of bladder; K92.2 Gastrointestinal hemorrhage, unspecified; Z93.3 Colostomy status; K56.41 Fecal impaction; Z74.09 Other reduced mobility; E88.09 Other disorders of plasma-protein metabolism, not elsewhere classified; E78.5 Hyperlipidemia, unspecified; I70.0 Atherosclerosis of aorta; B96.5 Pseudomonas (aeruginosa) (mallei) (pseudomallei) as the cause of diseases classified elsewhere; Z96.0 Presence of urogenital implants; N40.0 Benign prostatic hyperplasia without lower urinary tract symptoms; D75.839 Thrombocytosis, unspecified; E87.6 Hypokalemia; Z87.440 Personal history of urinary (tract) infections; Z87.891 Personal history of nicotine dependence; Z92.21 Personal history of antineoplastic chemotherapy; Z85.048 Personal history of other malignant neoplasm of rectum, rectosigmoid junction, and anus; D50.9 Iron deficiency anemia, unspecified; Z90.49 Acquired absence of other specified parts of digestive tract
CPT/HCPCS: 36415; 71045; 74018; 74250; 82378; 82746; 82784; 83550; 83735; 84100; 84155; 84165; 84443; 85018; 85025; 86334; 87086; A4663; A6213; G0378; J0692; J1450; J1815; J1938; J2358; J2470; J3475; J3480; J3490; J7040; J7042; J7131; Q9963